=== PATIENT | female | born 1995 | race Caucasian/White ===

== ENCOUNTER 2016-09-09 13:11 | Emergency (ER) | payer SELFPAY ==
[~2016-09-09] VITALS: Wt 71.5 kg
[2016-09-09 14:21] LABS: ADD SCAN DIFF NO
[2016-09-09 14:24] LABS: BASOPHILS % 0.2 % (0.0-2.0); EOSINOPHILS # 0.1 10^3/ul (0.0-0.5); EOSINOPHILS % 0.5 % (0.0-7.0); HEMATOCRIT 40.2 % (37.0-47.0); HEMOGLOBIN 13.2 g/dl (12.0-16.0); LYMPHOCYTES # 3.4 10^3/ul (0.8-2.9); LYMPHOCYTES % 29.6 % (18.0-55.0); MEAN CORPUSCULAR HEMOGLOBIN 29.2 pg (29.0-33.0); MEAN CORPUSCULAR HGB CONC 32.8 g/dl (32.0-37.0); MEAN CORPUSCULAR VOLUME 88.9 fl (72.0-104.0); MEAN PLATELET VOLUME 10.8 fl (7.4-10.4); MONOCYTE # 0.8 10^3/ul (0.3-0.9); MONOCYTES % 6.7 % (0.0-13.0); NEUTROPHIL # 7.3 10^3/ul (1.6-7.5); NEUTROPHILS % 62.7 % (30.0-74.0); PLATELET COUNT 308 10^3/UL (140-415); RED BLOOD COUNT 4.52 10^6/ul (4.20-5.40); RED CELL DISTRIBUTION WIDTH 12.5 % (11.5-14.5); WHITE BLOOD COUNT 11.6 10^3/ul (4.8-10.8)
[2016-09-09 14:37] LABS: ALBUMIN 4.6 g/dl (3.3-4.9); POTASSIUM 4.9 mmol/L (3.5-5.1)
[2016-09-09 14:39] LABS: CREATININE 0.7 mg/dl (0.44-1.00)
[2016-09-09 14:40] LABS: ALBUMIN/GLOBULIN RATIO 1.39; BILIRUBIN,INDIRECT 0.3 mg/dl (0-1.1); BILIRUBIN,TOTAL 0.3 mg/dl (0.2-1.3); CALCIUM 9.7 mg/dl (8.4-10.2); TOTAL PROTEIN 7.9 g/dl (6.1-8.1)
[2016-09-09 15:21] LABS: URINE BLOOD (Dip) POC Trace-intact (NEGATIVE)
[2016-09-09 15:36] VITALS: BP 120/63; PULSE 68; RESP 20; TEMP 98.3
--- NOTE | 2016-09-09 15:47 | ERD ---
ER Documentation Chief Complaint Date/Time DATE: 09/09/16 TIME: 15:36 Chief Complaint DIZZINESS, WEAKNESS, NEAR SYNCOPE PER FAMILY, PT AAOX4 HPI This is a 20-year-old female accompanied by her aunt complaining of dizziness and blurred vision starting this morning. Patient was walking towards her car when she developed the symptoms that lasted for 2 minutes. Patient denies any trauma, urinary bladder incontinence. Denies any recent history of fever, headache, cough, nausea, vomiting, paresis or paresthesia. Per patient's aunt, patient had a seizure episode in [place] 2 years ago and was on a medication called Balcole for 6 months. Patient is not on any maintenance medication for the past year. No surgical or family medical history. No drug allergies. ROS All systems reviewed and are negative except as per history of present illness. PMhx/Soc Medical and Surgical Hx: pt denies Surgical Hx Hx Neurological Disorder: Yes (hx of seizure) Hx Alcohol Use: No Hx Substance Use: No Hx Tobacco Use: No Physical Exam Vitals Vital Signs Date Time Temp Pulse Resp B/P Pulse Ox O2 Delivery O2 Flow Rate FiO2 09/09/16 13:13 99.6 81 17 141/71 99 Physical Exam Physical Exam CONST: Well-developed, well-nourished, in no acute distress. Nontoxic in appearance. Wearing corrective glasses. HEENT: Atraumatic. Normal Conjunctiva. Slight strabismus on the left eye. TM intact. External ear is normal. Clear oropharnyx without erythema. No Uvular deviation. Moist mucous membranes. Supple neck. No meningismus. No submandibular induration. RESP: Clear to auscultation bilaterally. No wheezing. CARDIO: Regular rate and rhythm, no murmurs. ABD: Soft, non tender, non distended. Normal bowel sounds. No McBurney's point tenderness. No guarding or rigidity. No peritoneal signs. SKIN: No petechiae or rashes. BACK: No midline or flank tenderness. EXT: No cyanosis or edema. Distal pulses equal and bilateral. NEURO: Awake and alert, appropriate for age Result Diagram: 09/09/16 1415 09/09/16 1415 Results 24 hrs Laboratory Tests Test 09/09/16 14:15 09/09/16 15:19 Alanine Aminotransferase (ALT/SGPT) 27IU/L Albumin 4.6g/dl Albumin/Globulin Ratio 1.39 Alkaline Phosphatase 83IU/L Anion Gap 18 Aspartate Amino Transf (AST/SGOT) 25IU/L Basophils # 0.010^3/ul Basophils % 0.2% Blood Urea Nitrogen 12mg/dl Calcium Level 9.7mg/dl Carbon Dioxide Level 27mmol/L Chloride Level 101mmol/L Creatinine 0.70mg/dl Direct Bilirubin 0.00mg/dl Eosinophils # 0.110^3/ul Eosinophils % 0.5% Globulin 3.30g/dl Glucose Level 93mg/dl Hematocrit 40.2% Hemoglobin 13.2g/dl Indirect Bilirubin 0.3mg/dl Lymphocytes # 3.410^3/ul Lymphocytes % 29.6% Mean Corpuscular Hemoglobin 29.2pg Mean Corpuscular Hemoglobin Concent 32.8g/dl Mean Corpuscular Volume 88.9fl Mean Platelet Volume 10.8fl Monocytes # 0.810^3/ul Monocytes % 6.7% Neutrophils # 7.310^3/ul Neutrophils % 62.7% Nucleated Red Blood Cells # 0.010^3/ul Nucleated Red Blood Cells % 0.0/100WBC Platelet Count 92653^3/UL Potassium Level 4.9mmol/L Red Blood Count 4.5210^6/ul Red Cell Distribution Width 12.5% Sodium Level 141mmol/L Total Bilirubin 0.3mg/dl Total Protein 7.9g/dl White Blood Count 11.610^3/ul Bedside Urine Blood Trace-intact Bedside Urine Glucose (UA) Negative Bedside Urine Ketones (LAB) Negative Bedside Urine Leukocyte Esterase (L Negative Bedside Urine Nitrite (LAB) Negative Bedside Urine Protein (LAB) Negative Bedside Urine pH (LAB) 7.5 Procedures/MDM EMERGENCY DEPARTMENT COURSE/MEDICAL DECISION MAKING This is a 20-year-old female who comes to the emergency room secondary to complaints of dizziness and blurred vision since this morning. Patient appears nontoxic. Denies any dizziness or blurred vision upon examination CBC, CMP and UA ordered. WBC is 11.6. Case was discussed with Dr. Gallo and agreed to discharge the patient. EKG read by Dr. Gallo: Rate/Rhythm: Regular rate and rhythm at a rate of 69 Intervals: Normal Impression: No evidence of ischemia or arrhythmia My primary diagnosis is dizziness. Differential diagnoses considered, included but not limited to intracerebral hemorrhage, DE, meningitis, migraine and vertigo. Pt is hemodynamically stable upon reassessment. The patient was discharged for outpatient management. Patient was instructed to increase fluid intake. The patient was advised to followup with their PMD in 1-2 days and to return to the Emergency Department if there are any new or worsening symptoms. The patient understood and agreed with the diagnosis, treatment and plan. Patient is stable for discharge at this time. Departure Diagnosis: Primary Impression: Dizziness Condition: Stable Patient Instructions: Possible Causes of Dizziness or Fainting, Dizziness ( Vertigo) and Balance Problems: Ensuring Your Safety, Dizziness, Unk Cause Referrals: [facility] [place] hecho un examen mdico de control que le indica que no est en shireen condicin que requiera tratamiento urgente en el Departamento de Emergencia. Un estudio ms profundo y el tratamiento de liz condicin pueden esperar sin ningn riesgo hasta que usted sea atendida/o en el consultorio de liz mdico o shireen cl isabelle. Es responsabilidad suya arreglar shireen chandrika para el seguimiento del bryon. MANEJO DE CONDICIONES NO URGENTES EN EL FUTURO 1) Si usted tiene un mdico de atencin primaria: Usted debera llamar a liz mdico de atencin primaria antes de venir al departamento de emergencia. Despus de las horas de consultorio, liz doctor o liz asociado/a est disponible por telfono. El mdico o enfermero de cassie en el servicio telefnico puede asesorarle por dana medio para atender el problema, o bryon contrario se puede programar shireen chandrika. 2) Si usted no tiene un mdico de atencin primaria: Llame al mdico o clnica de referencia que aparece abajo hans las horas de consultorio para hacer shireen chandrika para que le vean. CLINICAS: [facility] [phone] [facility] [phone] [place] [facility] [phone] [place] [id number] [phone] [place] [address] [phone] [facility]. [phone] [address] Additional Instructions: Cheque otro vez con liz doctor primario en el proximo spear or regresa para mas o nueva simptomas MILDRED DEL CID Sep 09, 2016 15:46
[2016-09-09] MEDS ORDERED: LEVE750T70 PO (20:49)
== END 2016-09-09 15:37 | disposition home or self-care (01) ==
LOC: FTE 13:11
DX: R42 Dizziness and giddiness (principal)
CPT/HCPCS: 80053; 81003; 85025; 93005

== ENCOUNTER 2016-09-09 18:22 | Emergency (ER) | payer MEDICAID ==
[~2016-09-09] VITALS: Wt 71.0 kg
[2016-09-09] MEDS ORDERED: LEVETIRACETAM IV 1,000 MG in SOD CHLORIDE 0.9% 100 ML IVPB STA (19:00)
[2016-09-09] MEDS ORDERED: ONDANSETRON 4 MG INJ IV STA (19:00)
[2016-09-09] MEDS ORDERED: HYDROmorphONE 1 MG/ML SYG IV STA (19:00)
[2016-09-09 19:36] LABS: POTASSIUM 3.9 mmol/L (3.5-5.1)
[2016-09-09 19:39] LABS: CREATININE 0.8 mg/dl (0.44-1.00)
[2016-09-09 19:40] LABS: CALCIUM 9.3 mg/dl (8.4-10.2)
--- NOTE | 2016-09-09 20:14 | RADRPT ---
PROCEDURE: CT Brain without contrast. CLINICAL INDICATION: Seizures TECHNIQUE: A CT of the brain was performed on a [email or web address] 64-slice CT scanner utilizing axial imaging from the skull base through the vertex without IV contrast. Multiplanar reformatted images were made. Images were reviewed on a PACS workstation. The CTDIvol is 45 mGy and the DLP is 720 mG ycm. COMPARISON: None FINDINGS: There is no intracranial hemorrhage, mass effect, or midline shift. No extra-axial fluid collection is seen. The ventricles and sulci are normal in size and configuration. The density of the brain is normal, and the starkey white matter differentiation appears well-preserved. The visualized paranasal sinuses and osseous structures are grossly unremarkable. IMPRESSION: 1. No evidence of acute intracranial pathology. 2. The brain is normal in appearance. Physician Alison Date Time Electronically viewed and signed by Physician Alison on 09/09/2016 20:13 ML/
[2016-09-09] MEDS ORDERED: LEVE750T70 PO (20:49)
--- NOTE | 2016-09-09 20:52 | ERD ---
ER Documentation Chief Complaint Date/Time DATE: 09/09/16 TIME: 20:50 Chief Complaint WITNESSED TONIC/CLONIC SEIZURE AT HOME, PT APPROPRIATE AT THIS TIME HPI This is a 20-year-old female who is seen in this ER earlier this morning for headache and dizziness. She had a CBC was discharged home. The patient says that she was at home laying in bed resting and she had a witnessed generalized tonic-clonic seizure for a few minutes per the mother. The patient had a postictal state as well. Patient has had 3 seizures now in her life. She was on valproic acid that was discontinued a year ago. Because she had been seizure -free. Patient states right now that she has a frontal pulsatile dull headache no photophobia no photophobia no recent illness no fevers. No trauma no vomiting diarrhea no focal neurological complaints. ROS All systems reviewed and are negative except as per history of present illness. Medications Home Meds Active Scripts Levetiracetam* (Keppra*) 750 Mg Tablet, 750 MG PO BID, #60 TAB Prov:FREDO PEARL DO 09/09/16 PMhx/Soc History of Surgery: No Anesthesia Reaction: No Hx Neurological Disorder: Yes (hx of seizure) Hx Respiratory Disorders: No Hx Cardiac Disorders: No Hx Psychiatric Problems: No Hx Miscellaneous Medical Probl: No Hx Alcohol Use: No Hx Substance Use: No Hx Tobacco Use: No Smoking Status: Never smoker FmHx Family History: No coronary disease Physical Exam Vitals Vital Signs Date Time Temp Pulse Resp B/P Pulse Ox O2 Delivery O2 Flow Rate FiO2 09/09/16 19:00 98.0 98 20 111/60 100 Nasal Cannula 2.0 09/09/16 18:28 98.7 108 18 116/58 96 Physical Exam Const: Well-developed, well-nourished Head: Atraumatic, normocephalic Eyes: Normal Conjunctiva, PERRLA, EOMI, normal sclera, no nystagmus ENT: Normal External Ears, Nose and Mouth, moist mucus membranes. Neck: Full range of motion. No meningismus, no lymphadenopathy. Resp: Clear to auscultation bilaterally, no wheezing, rhonchi, rales Cardio: Regular rate and rhythm, no murmurs, S1 S2 present Abd: Soft, non tender x 4, non distended. Normal bowel sounds, no guarding or rebound, no pulsitile abdominal masses or bruits Skin: No petechiae or rashes, no ecchymosis , no maculopapular rash Back: No midline or flank tenderness Ext: No cyanosis, or edema, FROM x 4, normal inspection, neurovascularly intact x 4 Neur: Awake and alert, STR 5/5 x 4, sensation intact x 4, no focal findings, cerebellum intact Psych: Normal Mood and Affect Result Diagram: 09/09/16 191 Results 24 hrs Laboratory Tests Test 09/09/16 19:10 Anion Gap 20 Blood Urea Nitrogen 12mg/dl Calcium Level 9.3mg/dl Carbon Dioxide Level 24mmol/L Chloride Level 102mmol/L Creatinine 0.80mg/dl Glucose Level 99mg/dl Potassium Level 3.9mmol/L Sodium Level 142mmol/L Current Medications Medications (Trade) Dose Ordered Sig/Alyx Route PRN Reason Start Time Stop Time Status Last Admin Dose Admin Levetiracetam/ Sodium Chloride (Keppra Iv/NS) 110 ml @ 400 mls/hr ONCE STAT IVPB 09/09/16 19:00 09/09/16 19:16 DC 09/09/16 19:30 Hydromorphone HCl (Dilaudid) 1 mg ONCE STAT IV 09/09/16 19:00 09/09/16 19:03 DC 09/09/16 19:21 Ondansetron HCl (Zofran Inj) 4 mg ONCE STAT IV 09/09/16 19:00 09/09/16 19:03 DC 09/09/16 19:21 Procedures/MDM PROCEDURE: CT Brain without contrast. CLINICAL INDICATION: Seizures TECHNIQUE: A CT of the brain was performed on a [employer] 64-slice CT scanner utilizing axial imaging from the skull base through the vertex without IV contrast. Multiplanar reformatted images were made. Images were reviewed on a PACS workstation. The CTDIvol is 45 mGy and the DLP is 720 mGycm. COMPARISON: None FINDINGS: There is no intracranial hemorrhage, mass effect, or midline shift. No extra- axial fluid collection is seen. The ventricles and sulci are normal in size and configuration. The density of the brain is normal, and the starkey white matter differentiation appears well-preserved. The visualized paranasal sinuses and osseous structures are grossly unremarkable. IMPRESSION: 1. No evidence of acute intracranial pathology. 2. The brain is normal in appearance. Abdiaziz Agustin Physician Date Time Electronically viewed and signed by Abdiaziz Agustin Physician on 09/09/2016 20 :13 ML/ CC: FREDO PEARL DO Patient's chemistry is normal. CBC is normal from this morning. CAT scan is normal. She was loaded with 1 g of Keppra IV. Will have her follow-up with her neurologist again and will start Keppra 750 twice daily Departure Diagnosis: Primary Impression: Seizure disorder Condition: Stable Patient Instructions: Seizure, Recurrent [Adult] Referrals: LIZ FOWLER MD, APOSTOLOS A. DO Sep 09, 2016 20:52
[2016-09-09 20:54] VITALS: BP 106/70; PULSE 67; RESP 20; TEMP 98
== END 2016-09-09 21:10 | disposition home or self-care (01) ==
LOC: E/R 18:22
DX: G40.909 Epilepsy, unspecified, not intractable, without status epilepticus (principal); R40.2142 Coma scale, eyes open, spontaneous, at arrival to emergency department; R40.2362 Coma scale, best motor response, obeys commands, at arrival to emergency department; R40.2252 Coma scale, best verbal response, oriented, at arrival to emergency department
CPT/HCPCS: 36415; 70450; 80048; 96374; 96375; J1170; J1953; J2405; Z7502; Z7610

== ENCOUNTER 2016-09-17 14:34 | Emergency (ER) | END 2016-09-17 19:43 | disposition home or self-care (01) | DX: G40.909 Epilepsy, unspecified, not intractable, without status epilepticus (principal) | CPT/HCPCS: 70553; Z7502 ==

== ENCOUNTER 2017-03-07 20:15 | Emergency (ER) | payer MEDICAID, OTHER ==
[~2017-03-07] VITALS: Ht 165.1 cm; Wt 62.0 kg
[~2017-03-07 20:15] MED LIST: LEVE750T70 PO
[2017-03-07 20:27] VITALS: Ht 165.1 cm; Wt 62.0 kg
[2017-03-07] MEDS ORDERED: ACETAMINOPHEN 500 MG TAB PO STA (21:18)
--- NOTE | 2017-03-07 21:22 | ERD ---
ER Documentation Chief Complaint Date/Time DATE: 03/07/17 TIME: 21:19 Chief Complaint pt bib aunt with c/o headache s/p seizue more HPI Patient is a 21-year-old female with epilepsy who presents to the ER after having a generalized tonic-clonic seizure lasting approximately 1 minute. She started having abnormal movements prior to seizure onset, and her mother lowered her to the ground. There is no trauma. The patient returned to baseline and complained of a moderate frontal headache. There was one episode of vomiting. The patient denies fever, neck stiffness, photophobia, sudden onset headache. The patient denies ongoing nausea. She denies dysuria. She states that she only slept for 3 hours last night and felt tired today. Otherwise she is in her normal state of health. She has been taking Keppra 1000 mg twice a day for the last month, and this is the first seizure during that time.She was diagnosed with seizure disorder 4 years ago. She last saw her neurologist 1 month ago. ROS All systems reviewed and are negative except as per history of present illness. Medications Home Meds Active Scripts Levetiracetam* (Keppra*) 750 Mg Tablet, 750 MG PO BID, #60 TAB Prov:FREDO PEARL DO 09/09/16 Allergies Allergies: Coded Allergies: No Known Allergy (Unverified , 09/17/16) PMhx/Soc Past medical history: Epilepsy Past surgical history: None Social history: Denies tobacco, alcohol or illicit drugs. History of Surgery: No Anesthesia Reaction: No Hx Neurological Disorder: Yes (hx of seizure) Hx Respiratory Disorders: No Hx Cardiac Disorders: No Hx Psychiatric Problems: No Hx Miscellaneous Medical Probl: No Hx Alcohol Use: No Hx Substance Use: No Hx Tobacco Use: No Smoking Status: Never smoker FmHx Family History: No coronary disease, No diabetes Physical Exam Vitals Vital Signs Date Time Temp Pulse Resp B/P Pulse Ox O2 Delivery O2 Flow Rate FiO2 03/07/17 20:27 98.3 98 18 115/58 98 Physical Exam Const: Alert, no acute distress Head: Atraumatic Eyes: Normal Conjunctiva, No pallor, no icterus, mild lateral nystagmus at baseline per mother ENT: Normal External Ears, Nose and Mouth. Moist mucous membranes. Neck: Full range of motion..~ No meningismus. No midline tenderness. Resp: Clear to auscultation bilaterally, No wheezes, no rales Cardio: Regular rate and rhythm, no murmurs Abd: Soft, non tender, non distended. Normal bowel sounds Skin: No petechiae or rashes Back: No midline or flank tenderness Ext: No cyanosis, or edema Neur: Awake and alert, Cranial nerves II through XII intact bilaterally, strength and sensation full in 4 extremities. Psych: Normal Mood and Affect Results 24 hrs Current Medications Medications (Trade) Dose Ordered Sig/Alyx Route PRN Reason Start Time Stop Time Status Last Admin Dose Admin Acetaminophen (Tylenol Tab) 1,000 mg ONCE STAT PO 03/07/17 21:18 03/07/17 21:19 DC 03/07/17 21:37 Procedures/MDM MDM: Patient is a 21-year-old female with seizure disorder who presents with a 1 minute tonic-clonic seizure. There is no trauma patient has no neurologic symptoms or deficits. She does report a frontal headache that started after having the seizure. There are no red flags for meningitis or subarachnoid hemorrhage. She denies any urinary symptoms. She is given a dose of Tylenol and had mild improvement. She is well-appearing. Her vital signs are stable. She is taking Keppra. I will discharge her with return precautions, advised Tylenol for pain, and advised her to call her neurologist arrange for follow-up. Departure Diagnosis: Primary Impression: Headache Headache type: unspecified Headache chronicity pattern: acute headache Intractability: not intractable Qualified Code: R51 - Acute nonintractable headache, unspecified headache type Additional Impression: Seizure Condition: MARIA M Llanos MD Mar 07, 2017 21:22
== END 2017-03-07 22:19 | disposition home or self-care (01) ==
LOC: FTE 20:15 → E/R 22:19
DX: R51 Headache (principal); G40.909 Epilepsy, unspecified, not intractable, without status epilepticus
CPT/HCPCS: Z7502; Z7610; 99282